=== PATIENT | male | born 1955 | race Caucasian/White ===

== ENCOUNTER 2019-11-17 09:18 | Inpatient (IN) | payer MEDICAID ==
[~2019-11-17] VITALS: Ht 162.6 cm; Wt 54.9 kg
[2019-11-17] MEDS ORDERED: METF-414 PO (09:27)
[2019-11-17] MEDS ORDERED: ATOR10TA69 PO (09:27)
[2019-11-17] MEDS ORDERED: ASPIRIN 81MG TABLET PO ONE (09:45)
[2019-11-17 10:05] LABS: BASOPHILS % 0.8 % (0.0-2.0); EOSINOPHILS % 3.7 % (0.0-5.0); HEMATOCRIT. 42.8 % (42.0-52.0); HEMOGLOBIN. 14.6 g/dL (14.0-18.0); MEAN CORPUSCULAR HEMOGLOBIN 30.6 pg (28.0-32.0); MEAN CORPUSCULAR VOLUME 89.8 fL (80.0-94.0); MEAN PLATELET VOLUME 10.3 fl (7.4-10.4); MONOCYTES % 6.6 % (2.0-8.0); NEUTROPHILS % 64.9 % (40.0-76.0); PLATELET 268 x1000/uL (130-400); RED BLOOD CELL COUNT 4.76 mill/uL (4.7-6.1); RED CELL DISTRIBUTION WIDTH 13.1 % (11.6-14.6)
[2019-11-17 10:12] LABS: CHLORIDE 102 mEq/L (98-107)
[2019-11-17 22:15] VITALS: BP 132/75
[2019-11-17] MEDS ORDERED: POLY15DR31 EACHEYE (23:01)
[2019-11-17] MEDS ORDERED: ASPI-1497 PO (23:01)
[2019-11-17] MEDS ORDERED: SIME80TA15 PO (23:01)
[2019-11-17] MEDS ORDERED: GUAIFENESIN 200MG/10ML SUGAR FREE UDC PO PRN (23:45)
[2019-11-17] MEDS ORDERED: HYDRALAZINE 20MG/ML VIAL IV PRN (23:45)
[2019-11-17] MEDS ORDERED: MORPHINE SULFATE 2 MG/ML CPJ (NOT FOR IM USE) IV PRN (23:45)
[2019-11-17] MEDS ORDERED: DIPHENHYDRAMINE 50MG/ML VIAL IV PRN (23:45)
[2019-11-17] MEDS ORDERED: MAGNESIUM/ALUMINUM HYDROXIDE/SIMETHICONE 30ML UDC PO PRN (23:45)
[2019-11-17] MEDS ORDERED: DOCUSATE SODIUM 100MG CAPSULE PO PRN (23:45)
[2019-11-17] MEDS ORDERED: IPRATROPIUM/ALBUTEROL 0.5-3(2.5)MG/3ML NEB NEB PRN (23:45)
[2019-11-17] MEDS ORDERED: ONDANSETRON HCL 4MG/2ML INJ IV PRN (23:45)
[2019-11-17] MEDS ORDERED: DEXTROSE 50% WATER 50ML SYRINGE IV PRN (23:45)
[2019-11-17] MEDS ORDERED: LORAZEPAM 2MG/ML CPJ IV PRN (23:45)
[2019-11-17] MEDS ORDERED: CLONIDINE 0.1MG TABLET PO PRN (23:45)
[2019-11-17] MEDS ORDERED: HYDROCODONE/ACETAMINOPHEN 10/325MG TABLET PO PRN (23:45)
[2019-11-17] MEDS ORDERED: NA PHOS,M-B/NA PHOS,DI-BA ENEMA 118ML PR PRN (23:45)
[2019-11-18 04:00] VITALS: BP 123/78
[2019-11-18] MEDS: SODIUM CHLORIDE 0.9% INJ 3ML FLUSH IVF SCH ×3 (06:21→23:34)
[2019-11-18] MEDS: INSULIN LISPRO 100 UNITS/ML SUBCUT SCH ×4 (06:22→21:56)
[2019-11-18] MEDS: BLOOD SUGAR DIAGNOSTIC STRIP TEST SCH ×4 (06:24→21:57)
[2019-11-18 06:44] LABS: BASOPHILS % 0.4 % (0.0-2.0); EOSINOPHILS % 4.7 % (0.0-5.0); HEMOGLOBIN. 14.1 g/dL (14.0-18.0); MEAN CORPUSCULAR HEMOGLOBIN 30.5 pg (28.0-32.0); MEAN CORPUSCULAR VOLUME 88.5 fL (80.0-94.0); MEAN PLATELET VOLUME 10.2 fl (7.4-10.4); MONOCYTES % 7.4 % (2.0-8.0); NEUTROPHILS % 59.5 % (40.0-76.0); PLATELET 275 x1000/uL (130-400); RED BLOOD CELL COUNT 4.64 mill/uL (4.7-6.1)
[2019-11-18 07:01] LABS: CHLORIDE 105 mEq/L (98-107)
[2019-11-18 07:12] LABS: CREATINE KINASE MB FRACTION < 1.0 ng/mL (0.5-3.6); LDL CHOLESTEROL 80 mg/dL (5-100)
[2019-11-18 07:13] LABS: CREATINE KINASE 36 IU/L (39-308); HDL CHOLESTEROL 33 mg/dL (40-59); T4 FREE 1.16 ng/dL (0.76-1.46)
[2019-11-18 08:00] VITALS: BP 114/69
[2019-11-18] MEDS: ENOXAPARIN 40MG/0.4ML SYR SUBCUT SCH (08:28)
[2019-11-18] MEDS: ASPIRIN 81MG TABLET PO SCH (11:51)
[2019-11-18 12:00] VITALS: BP 135/83
[2019-11-18 16:00] VITALS: BP 120/75
[2019-11-18 16:46] LABS: CREATINE KINASE 34 IU/L (39-308)
[2019-11-18 16:47] LABS: CREATINE KINASE MB FRACTION < 1.0 ng/mL (0.5-3.6)
[2019-11-18 20:00] VITALS: BP 107/63
[2019-11-18] MEDS: ACETAMINOPHEN 325MG TABLET PO PRN (21:57)
[2019-11-19] VITALS: BP 100/55
[2019-11-19 04:00] VITALS: BP 101/56
[2019-11-19] MEDS: BLOOD SUGAR DIAGNOSTIC STRIP TEST SCH ×4 (05:53→21:00)
[2019-11-19] MEDS: SODIUM CHLORIDE 0.9% INJ 3ML FLUSH IVF SCH ×3 (05:53→22:21)
[2019-11-19 05:54] LABS: CHLORIDE 104 mEq/L (98-107)
[2019-11-19 07:20] LABS: BASOPHILS % 0.5 % (0.0-2.0); EOSINOPHILS % 4.8 % (0.0-5.0); HEMATOCRIT. 41.3 % (42.0-52.0); HEMOGLOBIN. 14.2 g/dL (14.0-18.0); LYMPHOCYTES % 32.9 % (20.0-50.0); MEAN CORPUSCULAR HEMOGLOBIN 30.6 pg (28.0-32.0); MEAN CORPUSCULAR VOLUME 89.2 fL (80.0-94.0); MEAN PLATELET VOLUME 10.4 fl (7.4-10.4); MONOCYTES % 9.6 % (2.0-8.0); NEUTROPHILS % 52.2 % (40.0-76.0); PLATELET 271 x1000/uL (130-400); RED BLOOD CELL COUNT 4.63 mill/uL (4.7-6.1); RED CELL DISTRIBUTION WIDTH 13.1 % (11.6-14.6)
[2019-11-19 08:00] VITALS: BP 114/75
[2019-11-19] MEDS: ENOXAPARIN 40MG/0.4ML SYR SUBCUT SCH (08:30)
[2019-11-19] MEDS: ASPIRIN 81MG TABLET PO SCH (08:30)
[2019-11-19] MEDS: INSULIN LISPRO 100 UNITS/ML SUBCUT SCH ×4 (08:31→22:19)
[2019-11-19 11:36] VITALS: BP 108/63
[2019-11-19 16:00] VITALS: BP 102/69
[2019-11-19] MEDS: ACETAMINOPHEN 325MG TABLET PO PRN (17:00)
[2019-11-19 20:00] VITALS: BP 107/69
[2019-11-20] VITALS: BP 111/70
[2019-11-20 04:00] VITALS: BP 118/71
[2019-11-20] MEDS: SODIUM CHLORIDE 0.9% INJ 3ML FLUSH IVF SCH (06:12)
[2019-11-20] MEDS: BLOOD SUGAR DIAGNOSTIC STRIP TEST SCH ×2 (06:12→12:15)
[2019-11-20 08:00] VITALS: BP 122/67
[2019-11-20] MEDS: ASPIRIN 81MG TABLET PO SCH (08:06)
[2019-11-20] MEDS: INSULIN LISPRO 100 UNITS/ML SUBCUT SCH ×2 (08:06→12:22)
[2019-11-20] MEDS: ENOXAPARIN 40MG/0.4ML SYR SUBCUT SCH (08:06)
[2019-11-20] MEDS ORDERED: REGADENOSON 0.4 MG/5 ML IV SCH (08:15)
[2019-11-20] MEDS ORDERED: REGADENOSON 0.4 MG/5 ML IV ONE (10:22)
[2019-11-20 12:00] VITALS: BP 119/71
[2019-11-20 13:05] VITALS: BP 119/71
[2019-12-02] MEDS ORDERED: LANTUSUD SUBCUT (12:59)
[2019-12-02] MEDS ORDERED: CIPR-263 MT (12:59)
[2019-12-02] MEDS ORDERED: TOPUD PO (12:59)
== END 2019-11-20 15:45 | disposition home or self-care (01) | DRG 243 ==
LOC: ER 09:18 → 5WST 13:00 → EDBEDREQTM 13:02 → EDBEDREQ 13:02 → ENRESERV 21:07
PROVIDERS: ADMIT Internal Medicine; ATTEND Internal Medicine
DX: K21.9 Gastro-esophageal reflux disease without esophagitis (principal); E11.9 Type 2 diabetes mellitus without complications; E78.00 Pure hypercholesterolemia, unspecified; E78.5 Hyperlipidemia, unspecified; I10 Essential (primary) hypertension; Z79.84 Long term (current) use of oral hypoglycemic drugs; Z79.899 Other long term (current) drug therapy; Z79.82 Long term (current) use of aspirin
CPT/HCPCS: 36415; 71045; 78452; 80048; 80053; 80061; 82550; 82553; 82962; 83036; 83880; 84439; 84443; 84484; 85025; 85379; 93005; 93017; 93306; 93970; 99285; A9500; J1650; J1815; J2785

== ENCOUNTER 2019-11-22 18:00 | Inpatient (IN) | payer MEDICAID ==
[~2019-11-22] VITALS: Ht 162.6 cm; Wt 53.8 kg
[~2019-11-22 18:00] MED LIST: ASPI-1497 PO; ATOR10TA69 PO; METF-414 PO; POLY15DR31 EACHEYE; SIME80TA15 PO
[2019-11-22] MEDS ORDERED: ACETAMINOPHEN 325MG TABLET PO STA (18:16)
[2019-11-22] MEDS ORDERED: SODIUM CHLORIDE 0.9% 1000ML BAG (SEPSIS BOLUS) IV ONE (18:30)
[2019-11-22 18:49] LABS: CLARITY URINE CLEAR (CLEAR); COLOR URINE YELLOW (YELLOW); KETONES URINE TRACE (NEGATIVE); LEUKOCYTE ESTERASE URINE NEGATIVE (NEGATIVE); NITRITE URINE NEGATIVE (NEGATIVE); OCCULT BLOOD URINE NEGATIVE (NEGATIVE); PROTEIN URINE NEGATIVE (NEGATIVE); SPECIFIC GRAVITY URINE 1.034 (1.005-1.030)
[2019-11-22 18:55] LABS: BASOPHILS % 0.3 % (0.0-2.0); EOSINOPHILS % 1.4 % (0.0-5.0); HEMATOCRIT. 39.3 % (42.0-52.0); HEMOGLOBIN. 13.6 g/dL (14.0-18.0); LYMPHOCYTES % 9.9 % (20.0-50.0); MEAN CORPUSCULAR VOLUME 89.6 fL (80.0-94.0); MEAN PLATELET VOLUME 10.2 fl (7.4-10.4); MONOCYTES % 1.5 % (2.0-8.0); NEUTROPHILS % 86.9 % (40.0-76.0); PLATELET 235 x1000/uL (130-400); RED BLOOD CELL COUNT 4.39 mill/uL (4.7-6.1); RED CELL DISTRIBUTION WIDTH 12.8 % (11.6-14.6)
[2019-11-22 19:02] LABS: CHLORIDE 100 mEq/L (98-107)
[2019-11-22 19:04] LABS: PROTHROMBIN TIME 10.5 sec (9.6-11.0)
[2019-11-22] MEDS ORDERED: ONDANSETRON HCL 4MG/2ML INJ IV PRN (22:45)
[2019-11-22] MEDS ORDERED: CEFTRIAXONE 1 G PREMIX 50 ML IV NR (23:00)
[2019-11-22] MEDS ORDERED: SODIUM CHLORIDE 0.9% 1,000 ML IV ONE (23:15)
[2019-11-22] MEDS ORDERED: AZITHROMYCIN 500 MG in DEXT 5% WATER 250 ML IV SCH (23:15)
[2019-11-23 09:42] LABS: HEMATOCRIT. 35.9 % (42.0-52.0); HEMOGLOBIN. 12.6 g/dL (14.0-18.0); MEAN CORPUSCULAR HEMOGLOBIN 31.3 pg (28.0-32.0); MEAN CORPUSCULAR VOLUME 89.6 fL (80.0-94.0); MEAN PLATELET VOLUME 9.8 fl (7.4-10.4); PLATELET 207 x1000/uL (130-400); RED BLOOD CELL COUNT 4.01 mill/uL (4.7-6.1); RED CELL DISTRIBUTION WIDTH 13.1 % (11.6-14.6)
[2019-11-23] MEDS: HEPARIN 5000 UNITS/ML VIAL SUBCUT SCH ×2 (09:45→23:23)
[2019-11-23 09:50] LABS: CHLORIDE 109 mEq/L (98-107)
[2019-11-23 10:28] LABS: PLATELET ESTIMATE NORMAL
[2019-11-23] MEDS: SODIUM CHLORIDE 0.9% 1,000 ML IV SCH ×2 (10:30→23:23)
[2019-11-23] MEDS ORDERED: METRONIDAZOLE 500 MG PREMIX 100 ML IV NR (13:00)
[2019-11-23] MEDS: ACETAMINOPHEN 325MG TABLET PO PRN (13:05)
[2019-11-23] MEDS ORDERED: AMIKACIN 500MG in SODIUM CHLORIDE 0.9% 100ML IV NR (13:15)
[2019-11-23] MEDS ORDERED: CEFEPIME 2,000 MG in DEXT 5% WATER 100 ML IV NR (13:15)
[2019-11-23] MEDS ORDERED: DEXTROSE 50% WATER 50ML SYRINGE IV PRN (13:15)
[2019-11-23] MEDS ORDERED: POTASSIUM CHLORIDE 20MEQ TABLET SR PO SCH (15:30)
[2019-11-23] MEDS ORDERED: MAGNESIUM 2 G PREMIX 50 ML IV SCH (15:30)
[2019-11-23] MEDS: BLOOD SUGAR DIAGNOSTIC STRIP TEST SCH ×2 (17:00→22:00)
[2019-11-23] MEDS: INSULIN LISPRO 100 UNITS/ML SUBCUT SCH ×2 (18:36→23:25)
[2019-11-23] MEDS ORDERED: CEFTRIAXONE 1 G PREMIX 50 ML IV SCH (20:00)
[2019-11-23 20:27] LABS: HEPATITIS B SURFACE ANTIGEN NEGATIVE
[2019-11-23 20:57] LABS: HEPATITIS A AB IGM NEGATIVE (NEGATIVE)
[2019-11-23] MEDS ORDERED: AZITHROMYCIN 500 MG in DEXT 5% WATER 250 ML IV SCH (21:00)
[2019-11-23 21:40] VITALS: BP 105/54
[2019-11-24] VITALS: BP 92/52
[2019-11-24] MEDS: CEFEPIME 2,000 MG in DEXT 5% WATER 100 ML IV SCH ×2 (01:38→12:05)
[2019-11-24] MEDS: ACETAMINOPHEN 325MG TABLET PO PRN ×3 (02:43→16:11)
[2019-11-24] MEDS: METRONIDAZOLE 500 MG PREMIX 100 ML IV SCH ×3 (02:44→22:49)
[2019-11-24 04:00] VITALS: BP 103/53
[2019-11-24] MEDS: BLOOD SUGAR DIAGNOSTIC STRIP TEST SCH ×4 (06:41→21:00)
[2019-11-24] MEDS: INSULIN LISPRO 100 UNITS/ML SUBCUT SCH ×4 (07:46→22:52)
[2019-11-24 08:00] VITALS: BP 105/64
[2019-11-24] MEDS: ASPIRIN 81MG EC TABLET PO SCH (08:58)
[2019-11-24] MEDS: HEPARIN 5000 UNITS/ML VIAL SUBCUT SCH ×2 (08:59→22:50)
[2019-11-24 12:38] VITALS: BP 99/63
[2019-11-24] MEDS: CEFAZOLIN 2,000 MG in DEXT 5% WATER 100 ML IV SCH ×2 (14:59→22:55)
[2019-11-24] MEDS: INSULIN GLARGINE UD 100 UNITS/ML SYR SUBCUT SCH (15:00)
[2019-11-24] MEDS: SODIUM CHLORIDE 0.9% 1,000 ML IV SCH ×2 (16:01→22:50)
[2019-11-24 16:31] VITALS: BP 132/66
[2019-11-24 18:10] LABS: HEMATOCRIT. 34.9 % (42.0-52.0); MEAN CORPUSCULAR HEMOGLOBIN 30.7 pg (28.0-32.0); MEAN PLATELET VOLUME 11.2 fl (7.4-10.4); PLATELET 192 x1000/uL (130-400); RED BLOOD CELL COUNT 3.92 mill/uL (4.7-6.1); RED CELL DISTRIBUTION WIDTH 13.1 % (11.6-14.6)
[2019-11-24 18:22] LABS: CHLORIDE 102 mEq/L (98-107)
[2019-11-24 20:00] VITALS: BP 94/47
[2019-11-24 20:37] LABS: PLATELET ESTIMATE NORMAL
[2019-11-24] MEDS: ATORVASTATIN CALCIUM 40MG TABLET PO SCH (22:51)
[2019-11-25] VITALS: BP 129/63
[2019-11-25] MEDS: METRONIDAZOLE 500 MG PREMIX 100 ML IV SCH ×3 (00:52→17:37)
[2019-11-25] MEDS: ACETAMINOPHEN 325MG TABLET PO PRN ×4 (00:53→22:53)
[2019-11-25 04:00] VITALS: BP 99/52
[2019-11-25] MEDS: CEFAZOLIN 2,000 MG in DEXT 5% WATER 100 ML IV SCH ×3 (06:14→21:22)
[2019-11-25] MEDS: INSULIN LISPRO 100 UNITS/ML SUBCUT SCH ×4 (06:33→21:22)
[2019-11-25] MEDS: BLOOD SUGAR DIAGNOSTIC STRIP TEST SCH ×4 (06:33→21:22)
[2019-11-25 10:58] LABS: HEMATOCRIT. 33.5 % (42.0-52.0); HEMOGLOBIN. 11.4 g/dL (14.0-18.0); MEAN CORPUSCULAR HEMOGLOBIN 30.4 pg (28.0-32.0); MEAN CORPUSCULAR VOLUME 89.2 fL (80.0-94.0); MEAN PLATELET VOLUME 10.5 fl (7.4-10.4); PLATELET 191 x1000/uL (130-400); RED BLOOD CELL COUNT 3.75 mill/uL (4.7-6.1); RED CELL DISTRIBUTION WIDTH 13.4 % (11.6-14.6)
[2019-11-25 11:20] LABS: CHLORIDE 103 mEq/L (98-107)
[2019-11-25] MEDS: ASPIRIN 81MG EC TABLET PO SCH (11:28)
[2019-11-25] MEDS: HEPARIN 5000 UNITS/ML VIAL SUBCUT SCH ×2 (11:28→21:21)
[2019-11-25] MEDS: INSULIN GLARGINE UD 100 UNITS/ML SYR SUBCUT SCH (11:30)
[2019-11-25] MEDS: SODIUM CHLORIDE 0.9% 1,000 ML IV SCH (11:32)
[2019-11-25] MEDS ORDERED: IOHEXOL-300 100 ML BOTTLE ONE (14:08)
[2019-11-25 14:10] LABS: PLATELET ESTIMATE NORMAL
[2019-11-25] MEDS ORDERED: POTASSIUM CHLORIDE 20MEQ TABLET SR PO NR (16:30)
[2019-11-25 20:00] VITALS: BP 106/61
[2019-11-25] MEDS: ATORVASTATIN CALCIUM 40MG TABLET PO SCH (21:20)
[2019-11-26] VITALS: BP 104/57
[2019-11-26] MEDS: METRONIDAZOLE 500 MG PREMIX 100 ML IV SCH ×3 (02:44→17:34)
[2019-11-26 04:00] VITALS: BP 112/61
[2019-11-26] MEDS: INSULIN LISPRO 100 UNITS/ML SUBCUT SCH ×4 (06:06→22:26)
[2019-11-26] MEDS: BLOOD SUGAR DIAGNOSTIC STRIP TEST SCH ×4 (06:06→21:00)
[2019-11-26] MEDS: CEFAZOLIN 2,000 MG in DEXT 5% WATER 100 ML IV SCH ×3 (06:06→16:57)
[2019-11-26] MEDS: SODIUM CHLORIDE 0.9% 1,000 ML IV SCH ×2 (06:08→11:53)
[2019-11-26 07:35] LABS: BASOPHILS % 0.4 % (0.0-2.0); EOSINOPHILS % 0.6 % (0.0-5.0); HEMATOCRIT. 36.6 % (42.0-52.0); HEMOGLOBIN. 12.7 g/dL (14.0-18.0); LYMPHOCYTES % 10.7 % (20.0-50.0); MEAN CORPUSCULAR HEMOGLOBIN 31.1 pg (28.0-32.0); MEAN CORPUSCULAR VOLUME 89.4 fL (80.0-94.0); MEAN PLATELET VOLUME 10.5 fl (7.4-10.4); MONOCYTES % 9.6 % (2.0-8.0); NEUTROPHILS % 78.7 % (40.0-76.0); PLATELET 206 x1000/uL (130-400); RED CELL DISTRIBUTION WIDTH 13.3 % (11.6-14.6)
[2019-11-26 07:50] LABS: CHLORIDE 105 mEq/L (98-107)
[2019-11-26 08:00] VITALS: BP 119/68
[2019-11-26] MEDS: ASPIRIN 81MG EC TABLET PO SCH (09:00)
[2019-11-26] MEDS: HEPARIN 5000 UNITS/ML VIAL SUBCUT SCH ×2 (09:00→22:10)
[2019-11-26] MEDS ORDERED: INSULIN GLARGINE UD 100 UNITS/ML SYR SUBCUT SCH (10:00)
[2019-11-26 12:00] VITALS: BP 115/67
[2019-11-26 16:00] VITALS: BP 139/70
[2019-11-26] MEDS: ACETAMINOPHEN 325MG TABLET PO PRN (16:57)
[2019-11-26 20:00] VITALS: BP 131/66
[2019-11-26] MEDS: ATORVASTATIN CALCIUM 40MG TABLET PO SCH (22:09)
[2019-11-26] MEDS: INSULIN GLARGINE UD 100 UNITS/ML SYR SUBCUT SCH (22:12)
[2019-11-27] VITALS: BP 121/64
[2019-11-27] MEDS: ACETAMINOPHEN 325MG TABLET PO PRN ×4 (00:03→21:47)
[2019-11-27] MEDS: SODIUM CHLORIDE 0.9% 1,000 ML IV SCH ×2 (01:00→12:51)
[2019-11-27] MEDS: METRONIDAZOLE 500 MG PREMIX 100 ML IV SCH ×3 (01:11→17:17)
[2019-11-27 04:00] VITALS: BP 116/63
[2019-11-27] MEDS: CEFAZOLIN 2,000 MG in DEXT 5% WATER 100 ML IV SCH ×3 (05:54→21:13)
[2019-11-27] MEDS: BLOOD SUGAR DIAGNOSTIC STRIP TEST SCH ×4 (05:54→21:11)
[2019-11-27] MEDS: INSULIN LISPRO 100 UNITS/ML SUBCUT SCH ×4 (07:15→21:12)
[2019-11-27 07:26] LABS: BASOPHILS % 0.6 % (0.0-2.0); EOSINOPHILS % 1.1 % (0.0-5.0); HEMATOCRIT. 33.8 % (42.0-52.0); LYMPHOCYTES % 11.2 % (20.0-50.0); MEAN CORPUSCULAR HEMOGLOBIN 31.4 pg (28.0-32.0); MEAN CORPUSCULAR VOLUME 88.7 fL (80.0-94.0); MEAN PLATELET VOLUME 10.2 fl (7.4-10.4); MONOCYTES % 12.1 % (2.0-8.0); PLATELET 236 x1000/uL (130-400); RED BLOOD CELL COUNT 3.81 mill/uL (4.7-6.1); RED CELL DISTRIBUTION WIDTH 13.3 % (11.6-14.6)
[2019-11-27 07:45] LABS: CHLORIDE 105 mEq/L (98-107)
[2019-11-27 08:00] VITALS: BP 120/67
[2019-11-27] MEDS: ASPIRIN 81MG EC TABLET PO SCH (09:00)
[2019-11-27] MEDS: HEPARIN 5000 UNITS/ML VIAL SUBCUT SCH ×2 (09:00→21:15)
[2019-11-27] MEDS: INSULIN GLARGINE UD 100 UNITS/ML SYR SUBCUT SCH ×2 (10:00→21:13)
[2019-11-27] MEDS ORDERED: POTASSIUM CHLORIDE 20MEQ TABLET SR PO SCH (10:30)
[2019-11-27 12:00] VITALS: BP 115/72
[2019-11-27 16:00] VITALS: BP 119/75
[2019-11-27 20:00] VITALS: BP 115/67
[2019-11-27] MEDS ORDERED: HEPARIN 5000 UNITS/ML VIAL SUBCUT SCH (21:00)
[2019-11-27] MEDS: ATORVASTATIN CALCIUM 40MG TABLET PO SCH (21:11)
[2019-11-28] VITALS: BP 119/61
[2019-11-28] MEDS: METRONIDAZOLE 500 MG PREMIX 100 ML IV SCH ×3 (01:23→17:33)
[2019-11-28] MEDS: SODIUM CHLORIDE 0.9% 1,000 ML IV SCH ×2 (01:23→17:34)
[2019-11-28 04:00] VITALS: BP 115/68
[2019-11-28] MEDS: BLOOD SUGAR DIAGNOSTIC STRIP TEST SCH ×4 (05:27→20:54)
[2019-11-28] MEDS: INSULIN LISPRO 100 UNITS/ML SUBCUT SCH ×4 (05:27→20:57)
[2019-11-28] MEDS: CEFAZOLIN 2,000 MG in DEXT 5% WATER 100 ML IV SCH ×3 (05:30→20:54)
[2019-11-28 08:00] VITALS: BP 110/58
[2019-11-28] MEDS ORDERED: SODIUM BICARBONATE 4% (2.4MEQ) 5ML VIAL IV ONE (09:55)
[2019-11-28] MEDS ORDERED: LIDOCAINE HCL 1% 20ML VIAL (Pyxis) INJ ONE (09:55)
[2019-11-28] MEDS: HEPARIN 5000 UNITS/ML VIAL SUBCUT SCH ×2 (11:21→20:54)
[2019-11-28] MEDS: INSULIN GLARGINE UD 100 UNITS/ML SYR SUBCUT SCH ×2 (11:23→20:56)
[2019-11-28 12:00] VITALS: BP 123/64
[2019-11-28] MEDS: ACETAMINOPHEN 325MG TABLET PO PRN ×2 (12:21→20:54)
[2019-11-28 16:00] VITALS: BP 117/62
[2019-11-28 17:24] LABS: BASOPHILS % 0.5 % (0.0-2.0); EOSINOPHILS % 1.5 % (0.0-5.0); HEMATOCRIT. 34.5 % (42.0-52.0); LYMPHOCYTES % 18.4 % (20.0-50.0); MEAN CORPUSCULAR HEMOGLOBIN 31.2 pg (28.0-32.0); MEAN CORPUSCULAR VOLUME 89.5 fL (80.0-94.0); MEAN PLATELET VOLUME 9.9 fl (7.4-10.4); MONOCYTES % 9.1 % (2.0-8.0); NEUTROPHILS % 70.5 % (40.0-76.0); PLATELET 313 x1000/uL (130-400); RED BLOOD CELL COUNT 3.85 mill/uL (4.7-6.1); RED CELL DISTRIBUTION WIDTH 13.4 % (11.6-14.6)
[2019-11-28 17:34] LABS: CHLORIDE 102 mEq/L (98-107)
[2019-11-28 20:00] VITALS: BP 119/67
[2019-11-28] MEDS: ATORVASTATIN CALCIUM 40MG TABLET PO SCH (20:54)
[2019-11-29] VITALS: BP 100/52
[2019-11-29 04:00] VITALS: BP 113/60
[2019-11-29] MEDS: BLOOD SUGAR DIAGNOSTIC STRIP TEST SCH ×4 (05:47→21:28)
[2019-11-29] MEDS: INSULIN LISPRO 100 UNITS/ML SUBCUT SCH ×4 (05:47→21:26)
[2019-11-29] MEDS: CEFAZOLIN 2,000 MG in DEXT 5% WATER 100 ML IV SCH ×3 (05:57→21:28)
[2019-11-29 06:50] LABS: BASOPHILS % 0.5 % (0.0-2.0); EOSINOPHILS % 1.8 % (0.0-5.0); HEMATOCRIT. 34.1 % (42.0-52.0); MEAN CORPUSCULAR HEMOGLOBIN 31.5 pg (28.0-32.0); MEAN CORPUSCULAR VOLUME 89.2 fL (80.0-94.0); MEAN PLATELET VOLUME 9.7 fl (7.4-10.4); MONOCYTES % 9.6 % (2.0-8.0); NEUTROPHILS % 69.1 % (40.0-76.0); PLATELET 330 x1000/uL (130-400); RED BLOOD CELL COUNT 3.83 mill/uL (4.7-6.1); RED CELL DISTRIBUTION WIDTH 13.4 % (11.6-14.6)
[2019-11-29 07:08] LABS: CHLORIDE 104 mEq/L (98-107)
[2019-11-29 08:00] VITALS: BP 113/70
[2019-11-29] MEDS: HEPARIN 5000 UNITS/ML VIAL SUBCUT SCH ×2 (09:38→21:27)
[2019-11-29] MEDS: INSULIN GLARGINE UD 100 UNITS/ML SYR SUBCUT SCH ×2 (09:42→21:53)
[2019-11-29] MEDS ORDERED: POTASSIUM CHLORIDE 20MEQ TABLET SR PO NR (10:45)
[2019-11-29 12:00] VITALS: BP 107/60
[2019-11-29] MEDS: SODIUM CHLORIDE 0.9% 1,000 ML IV SCH (14:32)
[2019-11-29 16:00] VITALS: BP 171/92
[2019-11-29 20:00] VITALS: BP 110/56
[2019-11-29] MEDS: ATORVASTATIN CALCIUM 40MG TABLET PO SCH (21:28)
[2019-11-30] VITALS: BP 114/67
[2019-11-30] MEDS: SODIUM CHLORIDE 0.9% 1,000 ML IV SCH (00:07)
[2019-11-30 04:00] VITALS: BP 102/55
[2019-11-30 06:35] LABS: CHLORIDE 103 mEq/L (98-107)
[2019-11-30 06:42] LABS: BASOPHILS % 0.5 % (0.0-2.0); EOSINOPHILS % 1.5 % (0.0-5.0); HEMATOCRIT. 32.7 % (42.0-52.0); HEMOGLOBIN. 11.4 g/dL (14.0-18.0); LYMPHOCYTES % 18.5 % (20.0-50.0); MEAN CORPUSCULAR HEMOGLOBIN 31.1 pg (28.0-32.0); MEAN CORPUSCULAR VOLUME 88.9 fL (80.0-94.0); MEAN PLATELET VOLUME 9.7 fl (7.4-10.4); MONOCYTES % 10.4 % (2.0-8.0); NEUTROPHILS % 69.1 % (40.0-76.0); PLATELET 386 x1000/uL (130-400); RED BLOOD CELL COUNT 3.68 mill/uL (4.7-6.1); RED CELL DISTRIBUTION WIDTH 13.6 % (11.6-14.6)
[2019-11-30] MEDS: BLOOD SUGAR DIAGNOSTIC STRIP TEST SCH ×4 (07:06→21:39)
[2019-11-30] MEDS: INSULIN LISPRO 100 UNITS/ML SUBCUT SCH ×5 (07:06→21:43)
[2019-11-30 08:00] VITALS: BP 106/62
[2019-11-30] MEDS: HEPARIN 5000 UNITS/ML VIAL SUBCUT SCH ×2 (09:25→21:00)
[2019-11-30] MEDS: INSULIN GLARGINE UD 100 UNITS/ML SYR SUBCUT SCH ×2 (09:49→21:41)
[2019-11-30 12:00] VITALS: BP 115/65
[2019-11-30] MEDS: CEFAZOLIN 2,000 MG in DEXT 5% WATER 100 ML IV SCH ×2 (13:55→21:39)
[2019-11-30] MEDS: METRONIDAZOLE 500MG TABLET PO SCH ×2 (14:20→21:39)
[2019-11-30 16:00] VITALS: BP 120/66
[2019-11-30 20:00] VITALS: BP 106/58
[2019-11-30] MEDS: ATORVASTATIN CALCIUM 40MG TABLET PO SCH (21:39)
[2019-12-01] VITALS (16 sets, daily range): BP systolic 101–128; BP diastolic 54–76
[2019-12-01] MEDS: METRONIDAZOLE 500MG TABLET PO SCH ×3 (05:35→21:59)
[2019-12-01] MEDS: CEFAZOLIN 2,000 MG in DEXT 5% WATER 100 ML IV SCH ×3 (05:35→22:00)
[2019-12-01 05:45] LABS: BASOPHILS % 0.7 % (0.0-2.0); EOSINOPHILS % 1.8 % (0.0-5.0); HEMATOCRIT. 31.8 % (42.0-52.0); HEMOGLOBIN. 11.1 g/dL (14.0-18.0); LYMPHOCYTES % 19.3 % (20.0-50.0); MEAN CORPUSCULAR HEMOGLOBIN 30.9 pg (28.0-32.0); MEAN CORPUSCULAR VOLUME 88.6 fL (80.0-94.0); MEAN PLATELET VOLUME 8.9 fl (7.4-10.4); MONOCYTES % 9.6 % (2.0-8.0); NEUTROPHILS % 68.6 % (40.0-76.0); PLATELET 452 x1000/uL (130-400); RED BLOOD CELL COUNT 3.59 mill/uL (4.7-6.1); RED CELL DISTRIBUTION WIDTH 13.7 % (11.6-14.6)
[2019-12-01] MEDS: BLOOD SUGAR DIAGNOSTIC STRIP TEST SCH ×4 (05:45→21:00)
[2019-12-01 05:58] LABS: PROTHROMBIN TIME 10.7 sec (9.6-11.0)
[2019-12-01] MEDS: INSULIN LISPRO 100 UNITS/ML SUBCUT SCH ×4 (06:15→22:01)
[2019-12-01 06:21] LABS: CHLORIDE 102 mEq/L (98-107)
[2019-12-01] MEDS ORDERED: SODIUM BICARBONATE 4% (2.4MEQ) 5ML VIAL IV ONE (07:37)
[2019-12-01] MEDS ORDERED: LIDOCAINE HCL 1% 20ML VIAL (Pyxis) INJ ONE (07:37)
[2019-12-01] MEDS: HEPARIN 5000 UNITS/ML VIAL SUBCUT SCH ×2 (09:00→21:00)
[2019-12-01] MEDS ORDERED: FENTANYL CITRATE/PF 50MCG/ML 2ML VIAL ONE (09:46)
[2019-12-01] MEDS: INSULIN GLARGINE UD 100 UNITS/ML SYR SUBCUT SCH ×2 (10:00→22:01)
[2019-12-01] MEDS ORDERED: FENTANYL CITRATE/PF 50MCG/ML 2ML VIAL IV ONE (10:45)
[2019-12-01] MEDS: ACETAMINOPHEN 325MG TABLET PO PRN (11:10)
[2019-12-01] MEDS: KETOROLAC 30MG/ML VIAL IV PRN (17:10)
[2019-12-01] MEDS: ATORVASTATIN CALCIUM 40MG TABLET PO SCH (22:00)
[2019-12-02] VITALS: BP 103/55
[2019-12-02 04:00] VITALS: BP 105/66
[2019-12-02] MEDS: CEFAZOLIN 2,000 MG in DEXT 5% WATER 100 ML IV SCH ×2 (05:41→13:26)
[2019-12-02] MEDS: METRONIDAZOLE 500MG TABLET PO SCH ×3 (05:41→22:04)
[2019-12-02] MEDS: KETOROLAC 30MG/ML VIAL IV PRN (05:58)
[2019-12-02] MEDS: BLOOD SUGAR DIAGNOSTIC STRIP TEST SCH ×4 (06:01→21:09)
[2019-12-02] MEDS: INSULIN LISPRO 100 UNITS/ML SUBCUT SCH ×4 (06:19→22:08)
[2019-12-02 08:00] VITALS: BP_SYST 109; BP_SYST 116; BP_DIAS 66; BP_DIAS 69
[2019-12-02 08:00] LABS: BASOPHILS % 0.5 % (0.0-2.0); HEMATOCRIT. 33.2 % (42.0-52.0); HEMOGLOBIN. 11.5 g/dL (14.0-18.0); LYMPHOCYTES % 20.6 % (20.0-50.0); MEAN CORPUSCULAR VOLUME 89.3 fL (80.0-94.0); MEAN PLATELET VOLUME 8.9 fl (7.4-10.4); NEUTROPHILS % 65.9 % (40.0-76.0); PLATELET 499 x1000/uL (130-400); RED BLOOD CELL COUNT 3.72 mill/uL (4.7-6.1); RED CELL DISTRIBUTION WIDTH 13.6 % (11.6-14.6)
[2019-12-02 08:10] LABS: CHLORIDE 100 mEq/L (98-107)
[2019-12-02] MEDS: HEPARIN 5000 UNITS/ML VIAL SUBCUT SCH ×3 (09:13→22:18)
[2019-12-02] MEDS: INSULIN GLARGINE UD 100 UNITS/ML SYR SUBCUT SCH ×2 (11:17→22:07)
[2019-12-02 12:00] VITALS: BP 116/69
[2019-12-02] MEDS ORDERED: TOPUD PO (12:59)
[2019-12-02] MEDS ORDERED: LANTUSUD SUBCUT (12:59)
[2019-12-02] MEDS ORDERED: CIPR-263 MT (12:59)
[2019-12-02 16:00] VITALS: BP 110/56
[2019-12-02 20:00] VITALS: BP 117/71
[2019-12-02] MEDS ORDERED: LEVOFLOXACIN 750MG PREMIX 150 ML IV SCH (21:00)
[2019-12-02] MEDS: ATORVASTATIN CALCIUM 40MG TABLET PO SCH (22:05)
[2019-12-02] MEDS: LEVOFLOXACIN 750MG PREMIX 150 ML IV SCH (23:03)
[2019-12-03] VITALS: BP 112/65
[2019-12-03 04:00] VITALS: BP 107/64
[2019-12-03] MEDS: METRONIDAZOLE 500MG TABLET PO SCH ×3 (06:44→22:35)
[2019-12-03] MEDS: BLOOD SUGAR DIAGNOSTIC STRIP TEST SCH ×4 (06:44→20:21)
[2019-12-03] MEDS: INSULIN LISPRO 100 UNITS/ML SUBCUT SCH ×4 (07:15→20:28)
[2019-12-03 07:47] LABS: BASOPHILS % 0.4 % (0.0-2.0); HEMATOCRIT. 34.3 % (42.0-52.0); HEMOGLOBIN. 11.9 g/dL (14.0-18.0); LYMPHOCYTES % 23.4 % (20.0-50.0); MEAN CORPUSCULAR HEMOGLOBIN 30.8 pg (28.0-32.0); MEAN CORPUSCULAR VOLUME 88.7 fL (80.0-94.0); MEAN PLATELET VOLUME 8.6 fl (7.4-10.4); MONOCYTES % 8.4 % (2.0-8.0); NEUTROPHILS % 65.8 % (40.0-76.0); PLATELET 593 x1000/uL (130-400); RED BLOOD CELL COUNT 3.87 mill/uL (4.7-6.1)
[2019-12-03 08:00] VITALS: BP 100/60
[2019-12-03 08:00] LABS: CHLORIDE 103 mEq/L (98-107)
[2019-12-03] MEDS: HEPARIN 5000 UNITS/ML VIAL SUBCUT SCH ×2 (08:59→21:04)
[2019-12-03] MEDS ORDERED: ASPIRIN 81MG EC TABLET PO SCH (09:00)
[2019-12-03] MEDS: KETOROLAC 30MG/ML VIAL IV PRN (10:17)
[2019-12-03] MEDS: INSULIN GLARGINE UD 100 UNITS/ML SYR SUBCUT SCH ×2 (11:03→22:35)
[2019-12-03 12:00] VITALS: BP 107/56
[2019-12-03 16:00] VITALS: BP 110/51
[2019-12-03 20:00] VITALS: BP 102/62
[2019-12-03] MEDS: ATORVASTATIN CALCIUM 40MG TABLET PO SCH (20:29)
[2019-12-04] VITALS: BP 117/65
[2019-12-04] MEDS: LEVOFLOXACIN 750MG PREMIX 150 ML IV SCH (00:09)
[2019-12-04 04:00] VITALS: BP 120/64
[2019-12-04] MEDS: METRONIDAZOLE 500MG TABLET PO SCH ×2 (05:29→13:24)
[2019-12-04] MEDS: BLOOD SUGAR DIAGNOSTIC STRIP TEST SCH ×2 (05:47→12:05)
[2019-12-04] MEDS: INSULIN LISPRO 100 UNITS/ML SUBCUT SCH ×2 (06:09→12:09)
[2019-12-04 08:00] VITALS: BP 104/54
[2019-12-04] MEDS: INSULIN GLARGINE UD 100 UNITS/ML SYR SUBCUT SCH (09:18)
[2019-12-04] MEDS: HEPARIN 5000 UNITS/ML VIAL SUBCUT SCH (09:19)
[2019-12-04 12:00] VITALS: BP 101/58
[2019-12-04 13:47] VITALS: BP 101/58
[2019-12-05] MEDS ORDERED: LEVOFLOXACIN 250MG TABLET PO SCH (21:00)
== END 2019-12-04 15:41 | disposition home health service (06) | DRG 720 ==
LOC: ER 18:00 → 7WST 20:44 → EDBEDREQSVC 20:58 → EDBEDREQ 20:58 → EDBEDREQTM 21:19 → ENRESERV 11-23 20:16 → 5WST 11-25 02:05
PROVIDERS: ADMIT Internal Medicine; ATTEND Internal Medicine
PROC: 02HV33Z Insertion of Infusion Device into Superior Vena Cava, Percutaneous Approach (ICD-10-PCS; principal; 2019-11-28)
PROC: B548ZZA Ultrasonography of Superior Vena Cava, Guidance (ICD-10-PCS; 2019-11-28)
PROC: B5181ZA Fluoroscopy of Superior Vena Cava using Low Osmolar Contrast, Guidance (ICD-10-PCS; 2019-11-28)
PROC: 0F9030Z Drainage of Liver with Drainage Device, Percutaneous Approach (ICD-10-PCS; 2019-12-01)
DX: A41.59 Other Gram-negative sepsis (principal); E43 Unspecified severe protein-calorie malnutrition; K75.0 Abscess of liver; I11.0 Hypertensive heart disease with heart failure; I50.30 Unspecified diastolic (congestive) heart failure; E87.1 Hypo-osmolality and hyponatremia; E83.42 Hypomagnesemia; R74.0 Nonspecific elevation of levels of transaminase and lactic acid dehydrogenase [LDH]; E11.65 Type 2 diabetes mellitus with hyperglycemia; E78.00 Pure hypercholesterolemia, unspecified; E87.6 Hypokalemia; Z20.828 Contact with and (suspected) exposure to other viral communicable diseases; E78.5 Hyperlipidemia, unspecified; Z79.899 Other long term (current) drug therapy; Z79.84 Long term (current) use of oral hypoglycemic drugs; Z79.82 Long term (current) use of aspirin; Z68.20 Body mass index [BMI] 20.0-20.9, adult
CPT/HCPCS: 36415; 36573; 71045; 74177; 76700; 76937; 77012; 80048; 80053; 80076; 81003; 82105; 82248; 82962; 83036; 83605; 83735; 84145; 84484; 85025; 86705; 86709; 86803; 87070; 87075; 87077; 87186; 87340; 87635; 93005; 99152; 99153; 99285; 99291; C1725; C1729; C1769; J0278; J0456; J0690; J0692; J0696; J1644; J1815; J1885; J1956; J3010; J3475; J3490; J7030; J7050; J7060; L8514; Q9967; G0500; U0003-CS

== ENCOUNTER 2019-12-29 20:04 | Emergency (ER) | payer MEDICAID ==
[~2019-12-29] VITALS: Ht 162.6 cm; Wt 59.0 kg
[~2019-12-29 20:04] MED LIST changes: +CIPR-263 MT; +LANTUSUD SUBCUT; -POLY15DR31 EACHEYE; -SIME80TA15 PO; +TOPUD PO
[2019-12-29 23:04] VITALS: BP 125/78
== END 2019-12-29 23:07 | disposition home or self-care (01) ==
LOC: ER 20:04
DX: K75.0 Abscess of liver (principal); I10 Essential (primary) hypertension; E11.9 Type 2 diabetes mellitus without complications; Z79.82 Long term (current) use of aspirin; Z98.890 Other specified postprocedural states; Z79.899 Other long term (current) drug therapy; Z48.00 Encounter for change or removal of nonsurgical wound dressing
CPT/HCPCS: 99281